=== PATIENT | female | born 1985 | race American Indian/Alaskan Native ===

== ENCOUNTER 2016-12-28 21:09 | Emergency (ER) | payer SELFPAY ==
[2016-12-28 22:00] LABS: Basophils % (Auto) 1.3 % (0.0-1.8); Eosinophils % (Auto) 3.5 % (0.0-4.3); Hematocrit 34.9 % (30.3-42.9); Hemoglobin 11.2 gm/dl (10.1-14.3); Mean Corpuscular HGB Conc 32 % (30-34); Mean Corpuscular Volume 77 fl (79-97); Platelet Count 305 K/mm3 (140-440); Red Blood Count 4.52 M/mm3 (3.65-5.03); White Blood Count 11.2 K/mm3 (4.5-11.0)
[2016-12-28 22:19] LABS: Mean Corpuscular Hemoglobin 25 pg (28-32)
[2016-12-29 00:19] LABS: Bilirubin,Urine NEG (Negative); Blood,Urine LG (Negative); Ketones,Urine NEG (Negative); Leukocyte Esterase,Urine NEG (Negative); Mucus,Urine FEW /HPF; Nitrite,Urine NEG (Negative); Urobilinogen,Urine < 2.0 mg/dL (<2.0)
--- NOTE | 2016-12-29 00:46 | Emergency Department Report ---
ED Abdominal Pain HPI - General Chief Complaint: Vaginal Bleeding Stated Complaint: VAGINAL BLEEDING Time Seen by Provider: 12/28/16 23:44 Source: patient Mode of arrival: Ambulatory Limitations: No Limitations - History of Present Illness Initial Comments: Pt is a 31 yr old female with no PMHx who presents with lower abdominal pain and vaginal bleeding x 1 day. Pt reports she passed some blood and tissue in the toilet today. She reports she was in October, but got her cycle and assumed she was not anymore, but when she passed blood and tissue in the toilet she came to the ED to be evaluated. Otherwise no fevers, chills, SOB, CP, NVD, trauma, syncope, or sick contacts MD Complaint: abdominal pain - Related Data Home Medications Medication Instructions Recorded Confirmed Last Taken No Known Home Medications [No 12/29/16 12/29/16 Unknown Reported Home Medications] Allergies Allergy/AdvReac Type Severity Reaction Status Date / Time codeine Allergy Itching Verified 12/28/16 21:32 Penicillins Allergy Swelling Verified 12/28/16 21:31 ED Review of Systems ROS: Stated complaint: VAGINAL BLEEDING Other details as noted in HPI Comment: All other systems reviewed and negative ED Past Medical Hx - Past Medical History Previous Medical History?: No - Surgical History Past Surgical History?: Yes Additional Surgical History: C SECTION - Social History Smoking Status: Current Every Day Smoker Substance Use Type: None - Medications Home Medications: Home Medications Medication Instructions Recorded Confirmed Last Taken Type No Known Home Medications [No 12/29/16 12/29/16 Unknown History Reported Home Medications] ED Physical Exam - General Limitations: No Limitations General appearance: alert, in no apparent distress - Head Head exam: Present: atraumatic, normocephalic - Eye Eye exam: Present: normal appearance - ENT ENT exam: Present: mucous membranes moist - Neck Neck exam: Present: normal inspection - Respiratory Respiratory exam: Present: normal lung sounds bilaterally. Absent: respiratory distress - Cardiovascular Cardiovascular Exam: Present: regular rate, normal rhythm. Absent: systolic murmur, diastolic murmur, rubs, gallop - GI/Abdominal GI/Abdominal exam: Present: soft, tenderness (suprapubic), normal bowel sounds. Absent: distended, guarding, rebound, rigid - Rectal Rectal exam: Present: deferred - External exam: Present: normal external exam, bleeding. Absent: lacerations Bi-manual exam: Present: other (vaginal bleeding, could not reach cervix, extremely posterior, limited by habitus). Absent: cervical motion tendernes, adnexal tenderness, adnexal mass - Extremities Exam Extremities exam: Present: normal inspection - Back Exam Back exam: Present: normal inspection - Neurological Exam Neurological exam: Present: alert, oriented X3 - Psychiatric Psychiatric exam: Present: normal affect, normal mood - Skin Skin exam: Present: warm, dry, intact, normal color. Absent: rash ED Course Vital Signs 12/28/16 12/28/16 12/28/16 21:32 23:42 23:51 Temperature 98.9 F Pulse Rate 73 78 78 Respiratory 18 14 19 Rate Blood Pressure 123/72 122/72 Blood Pressure 126/64 [Left] O2 Sat by Pulse 99 100 99 Oximetry 12/28/16 12/29/16 12/29/16 23:53 00:00 00:11 Temperature Pulse Rate 67 76 70 Respiratory 16 20 23 Rate Blood Pressure 122/72 114/54 114/54 Blood Pressure [Left] O2 Sat by Pulse 100 100 100 Oximetry 12/29/16 12/29/16 12/29/16 00:21 00:30 00:41 Temperature Pulse Rate 83 74 71 Respiratory 23 16 22 Rate Blood Pressure 112/51 113/58 113/58 Blood Pressure [Left] O2 Sat by Pulse 99 99 100 Oximetry 12/29/16 12/29/16 12/29/16 00:51 01:00 01:11 Temperature Pulse Rate 74 77 80 Respiratory 14 20 18 Rate Blood Pressure 106/60 96/57 96/57 Blood Pressure [Left] O2 Sat by Pulse 99 99 99 Oximetry 12/29/16 01:43 Temperature Pulse Rate 71 Respiratory 14 Rate Blood Pressure 109/57 Blood Pressure [Left] O2 Sat by Pulse 100 Oximetry ED Medical Decision Making - Lab Data Result diagrams: 12/28/16 21:44 - Radiology Data Radiology results: report reviewed Pelvic US: No acute pathology, no IUP, no free fluid. Normal uterus, complete AB - Medical Decision Making results discussed with patient Critical care attestation.: If time is entered above; I have spent that time in minutes in the direct care of this critically ill patient, excluding procedure time. ED Disposition Clinical Impression: Complete , Abdominal pain Disposition: DISCHARGED TO HOME OR SELFCARE Is pt being admited?: No Condition: Stable Instructions: Abdominal Pain (ED), Spontaneous Miscarriage (ED) Referrals: PRIMARY CARE, [Primary Care Provider] - 3-5 Days
--- NOTE | 2016-12-29 02:03 | Ultrasound Report ---
FINAL REPORT PROCEDURE: US OB TRANSVAGINAL TECHNIQUE: Real-time transvaginal sonography of the uterus, placenta, amniotic fluid, adnexa, and fetus was performed with image documentation. Measurements were obtained to determine age/size. M-mode Doppler was used to document heartbeat. CPT 69670 HISTORY: complete ab COMPARISON: No prior studies are available for comparison. FINDINGS: No intrauterine is identified. The uterus measures 10.8 x 4.8 x 5.3 centimeters. The endometrium is 9.5 millimeters. There is no endometrial fluid. There are incidental nabothian cysts in the cervix. Right ovary measures 3.5 x 2 x 2.2 centimeters. Left ovary measures 3.7 x 1.7 x 3.6 centimeters. There is no ovarian mass or torsion. There is no free fluid. IMPRESSION: Normal uterus and ovaries. No is identified. Correlation with beta HCG measurements may be helpful.
--- NOTE | 2016-12-29 02:03 | Ultrasound Report ---
FINAL REPORT PROCEDURE: US OB transabdominal TECHNIQUE: Real-time transabdominal sonography of the uterus, placenta, amniotic fluid, adnexa, and fetus was performed with image documentation. Measurements were obtained to determine age/size. M-mode Doppler was used to document heartbeat. HISTORY: complete ab COMPARISON: No prior studies are available for comparison. FINDINGS: No intrauterine is identified. The uterus measures 10.8 x 4.8 x 5.3 centimeters. The endometrium is 9.5 millimeters. There is no endometrial fluid. There are incidental nabothian cysts in the cervix. Right ovary measures 3.5 x 2 x 2.2 centimeters. Left ovary measures 3.7 x 1.7 x 3.6 centimeters. There is no ovarian mass or torsion. There is no free fluid. IMPRESSION: Normal uterus and ovaries. No is identified. Correlation with beta HCG measurements may be helpful.
[2016-12-29 02:36] VITALS: BP 96/57
== END 2016-12-29 02:40 | disposition home or self-care (01) ==
LOC: ED 21:09
DX: O03.9 Complete or unspecified spontaneous abortion without complication (principal); R10.30 Lower abdominal pain, unspecified; F17.200 Nicotine dependence, unspecified, uncomplicated; Z88.5 Allergy status to narcotic agent; Z88.0 Allergy status to penicillin
CPT/HCPCS: 36415; 76801; 76817; 81001; 84702; 85025; 86850; 86900; 86901

== ENCOUNTER 2017-02-20 23:07 | Emergency (ER) | payer SELFPAY ==
[2017-02-21 00:21] LABS: Basophils % (Auto) 0.5 % (0.0-1.8); Eosinophils % (Auto) 3.1 % (0.0-4.3); Hemoglobin 12.1 gm/dl (10.1-14.3); Mean Corpuscular HGB Conc 32 % (30-34); Mean Corpuscular Volume 79 fl (79-97); Platelet Count 317 K/mm3 (140-440); Red Blood Count 4.82 M/mm3 (3.65-5.03); Red Cell Distribution Width 16.6 % (13.2-15.2)
[2017-02-21 00:29] LABS: Mean Corpuscular Hemoglobin 25 pg (28-32)
[2017-02-21 00:35] LABS: Alanine Aminotransferase 23 units/L (7-56); Albumin 3.8 g/dL (3.9-5); Albumin/Globulin Ratio 1.3 %; Alkaline Phosphatase 77 units/L (35-129); Bilirubin,Total < 0.20 mg/dL (0.1-1.2); Blood Urea Nitrogen 14 mg/dL (7-17); Calcium 8.7 mg/dL (8.4-10.2); Carbon Dioxide 23 mmol/L (22-30); Chloride 102.3 mmol/L (98-107); Glucose 92 mg/dL (65-100); Potassium 4.2 mmol/L (3.6-5.0); Sodium 140 mmol/L (137-145); Total Protein 6.8 g/dL (6.3-8.2)
[2017-02-21 00:39] LABS: Anion Gap 19 mmol/L
[2017-02-21 00:48] LABS: Bacteria,Urine 2+ /HPF (Negative); Bilirubin,Urine NEG (Negative); Blood,Urine LG (Negative); Ketones,Urine NEG (Negative); Leukocyte Esterase,Urine SM (Negative); Mucus,Urine FEW /HPF; Nitrite,Urine NEG (Negative); Urobilinogen,Urine < 2.0 mg/dL (<2.0)
[2017-02-21 13:13] VITALS: BP 119/72
--- NOTE | 2017-02-21 13:21 | Emergency Department Report ---
ED Female HPI - General Chief complaint: Abdominal Pain Stated complaint: ABD PAIN/DIARRHEA Time Seen by Provider: 02/21/17 12:29 Source: patient Mode of arrival: Ambulatory Limitations: No Limitations - History of Present Illness Complaint: vaginal bleeding -: Gradual, days(s) Location: suprapubic Radiation: non-radiating Severity: mild Severity scale (0 -10): 1 Quality: cramping Consistency: intermittent Improves with: none Worsens with: none Are you Now?: No Associated Symptoms: vaginal bleeding. denies: vaginal discharge, abdominal pain, nausea/vomiting, fever/chills, headaches, loss of appetite, dysuria, hematuria, rash, shortness of breath, syncope, weakness - Related Data Home Medications Medication Instructions Recorded Confirmed Last Taken No Known Home Medications [No 12/29/16 12/29/16 Unknown Reported Home Medications] Allergies Allergy/AdvReac Type Severity Reaction Status Date / Time codeine Allergy Itching Verified 12/28/16 21:32 Penicillins Allergy Swelling Verified 12/28/16 21:31 ED Review of Systems ROS: Stated complaint: ABD PAIN/DIARRHEA Other details as noted in HPI Other: GENERAL: No weight change, fatigue, weakness, fever, chills, or night sweats SKIN: No changes in skin or hair, no itching, no rashes, no jaundice HEAD: No trauma, headache, or visual changes EYES: No blurriness, tearing, itching, acute visual loss, conjunctival discoloration, or scleral icterus EARS: No hearing loss, tinnitus, vertigo, or earache NOSE: No rhinorrhea, stuffiness, sneezing, itching, or epistaxis MOUTH: No bleeding gums, hoarseness, sore throat, or swelling CARDIAC: No new murmur, chest pain, palpitations, dyspnea on exertion, orthopnea , PND, or edema RESPIRATORY: No shortness of breath, wheeze, cough, sputum production, hemoptysis, pneumonia, asthma, bronchitis, or emphysema GI: No change in appetite, nausea, vomiting, dysphagia, change in bowel frequency, diarrhea, constipation, bleeding, hematemesis, melena, hematochezia, or abdominal pain URINARY: No frequency, urgency, polyuria, dysuria, hematuria, or incontinence MUSCULOSKELETAL: No muscle weakness, joint stiffness, decrease in range of motion, redness, swelling, tenderness NEUROLOGIC: No loss of sensation, numbness, tingling, tremors, weakness, paralysis, seizures HEMATOLOGIC: No anemia, easy bruising, bleeding, petechiae, or purpura ENDOCRINE: No hot or cold intolerance, sweating, polyuria, polydipsia or, polyphagia no thyroid problems PSYCHIATRIC: No change in mood, no anxiety, no depression GENITAL: Female: change in menstrual regularity ED Past Medical Hx - Past Medical History Previous Medical History?: No - Surgical History Past Surgical History?: Yes Additional Surgical History: C SECTION - Social History Smoking Status: Never Smoker Substance Use Type: Alcohol, Marijuana - Medications Home Medications: Home Medications Medication Instructions Recorded Confirmed Last Taken Type No Known Home Medications [No 12/29/16 12/29/16 Unknown History Reported Home Medications] ED Physical Exam - General Limitations: No Limitations - Other Other exam information: GENERAL: Patient in no acute distress HEAD: Normocephalic, atraumatic EYES: PERRLA, EOM intact, no scleral icterus, no conjunctival hemorrhage, visual isabel and acuity wnl, NOSE: No tenderness, discharge, sinus tenderness MOUTH: No erythema, bleeding, exudate HEART: Regular rate and rhythm, no murmur, S1-S2 are auscultated, pulses are symmetric LUNGS: No wheezing, rales, rhonchi, bilateral breath sounds ABDOMEN: Normal bowel sounds, no tenderness, no rebound, no guarding, no masses , no CVA tenderness MUSCULOSKELETAL: Normal joint range of motion, no redness, no swelling, no tenderness NEUROLOGIC: GCS 15, Alert and Oriented x3, Cranial nerves intact, normal sensation, normal strength, normal gait, no cerebellar deficit PSYCHIATRIC: No homicidal or suicidal ideation, no anxiety, no depression, no hallucinations SKIN: Skin is warm and dry, no wounds, no rashes ED Course Vital Signs 02/20/17 02/21/17 02/21/17 23:36 06:03 12:47 Temperature 98.2 F 98.3 F Pulse Rate 74 67 Respiratory 18 14 Rate Blood Pressure 133/85 129/84 O2 Sat by Pulse 99 100 97 Oximetry 02/21/17 02/21/17 02/21/17 13:00 13:08 13:13 Temperature 97.9 F Pulse Rate Respiratory 18 Rate Blood Pressure 119/72 O2 Sat by Pulse 98 100 Oximetry ED Medical Decision Making - Lab Data Result diagrams: 02/20/17 23:48 06/14/17 23:48 - Medical Decision Making Patient comfortable. Updated with results. Plan discharge with outpatient follow-up. Patient agrees with plan and will return if symptoms worsen. Critical care attestation.: If time is entered above; I have spent that time in minutes in the direct care of this critically ill patient, excluding procedure time. ED Disposition Clinical Impression: Dysfunctional uterine bleeding Abdominal pain Qualifiers: Abdominal location: unspecified location Qualified Code(s): R10.9 - Unspecified abdominal pain Disposition: TO HOME OR SELFCARE Is pt being admited?: No Condition: Stable Instructions: Dysfunctional Uterine Bleeding (ED), Abdominal Pain (ED) Referrals: PRIMARY CARE, [Primary Care Provider] - 2-3 Days [facility] [Provider Group] - 2-3 Days Forms: Work/School Release Form(ED) Time of Disposition: 13:19
== END 2017-02-21 13:43 | disposition home or self-care (01) ==
LOC: ED 23:07
DX: N93.8 Other specified abnormal uterine and vaginal bleeding (principal); F12.10 Cannabis abuse, uncomplicated; F10.10 Alcohol abuse, uncomplicated; Z88.6 Allergy status to analgesic agent; Z88.0 Allergy status to penicillin
CPT/HCPCS: 36415; 80053; 81001; 84703; 85025; 99283

== ENCOUNTER 2017-03-01 14:21 | Emergency (ER) | payer SELFPAY ==
--- NOTE | 2017-03-01 18:16 | Emergency Department Report ---
ED ENT HPI - General Chief complaint: Earache Stated complaint: LT EAR PAIN Time Seen by Provider: 03/01/17 17:28 Source: patient Mode of arrival: Ambulatory Limitations: No Limitations - History of Present Illness Initial comments: 31-year-old female presents complaining of 2 days of sensation of left ear fullness and slight decrease in hearing. Denies any purulent drainage from ear denies any headache denies any fever or chills. States she does have mild earache. States she has slight increase in lymph nodes on left side. MD complaint: ear pain Onset/Timin -: days(s) Location: L ear Severity: mild Severity scale (0 -10): 4 Quality: aching Consistency: intermittent - Related Data Previous Rx's Medication Instructions Recorded Last Taken Type Azithromycin [Zithromax Z-CLAUDETTE] 250 mg PO QDAY #6 tablet 03/01/17 Unknown Rx Carbamide Peroxide 6.5% [Ear Wax 1 drops OT QDAY #1 bottle 03/01/17 Unknown Rx Drops] Ibuprofen [Motrin] 800 mg PO Q8HR PRN #30 tablet 03/01/17 Unknown Rx Allergies Allergy/AdvReac Type Severity Reaction Status Date / Time codeine Allergy Itching Verified 03/01/17 15:23 Penicillins Allergy Swelling Verified 03/01/17 15:23 ED Dental HPI - General Chief complaint: Earache Stated complaint: LT EAR PAIN Time Seen by Provider: 03/01/17 17:28 Source: patient Mode of arrival: Ambulatory Limitations: No Limitations - Related Data Previous Rx's Medication Instructions Recorded Last Taken Type Azithromycin [Zithromax Z-CLAUDETTE] 250 mg PO QDAY #6 tablet 03/01/17 Unknown Rx Carbamide Peroxide 6.5% [Ear Wax 1 drops OT QDAY #1 bottle 03/01/17 Unknown Rx Drops] Ibuprofen [Motrin] 800 mg PO Q8HR PRN #30 tablet 03/01/17 Unknown Rx Allergies Allergy/AdvReac Type Severity Reaction Status Date / Time codeine Allergy Itching Verified 03/01/17 15:23 Penicillins Allergy Swelling Verified 03/01/17 15:23 ED Review of Systems ROS: Stated complaint: LT EAR PAIN Other details as noted in HPI Constitutional: denies: chills, fever Eyes: denies: eye pain, eye discharge, vision change ENT: ear pain (2 days of left-sided earache). denies: throat pain Respiratory: denies: cough, shortness of breath, wheezing Cardiovascular: denies: chest pain, palpitations Endocrine: no symptoms reported Gastrointestinal: denies: abdominal pain, nausea, diarrhea Genitourinary: denies: urgency, dysuria, discharge Musculoskeletal: denies: back pain, joint swelling, arthralgia Skin: denies: rash, lesions Neurological: denies: headache, weakness, paresthesias Psychiatric: denies: anxiety, depression Hematological/Lymphatic: denies: easy bleeding, easy bruising ED Past Medical Hx - Past Medical History Hx Psychiatric Treatment: Yes (ANXIETY / DEPRESSION) Additional medical history: "SLEEPING PROBLEMS". OBESITY - Surgical History Additional Surgical History: C SECTION - Social History Smoking Status: Current Every Day Smoker Substance Use Type: Alcohol, Marijuana - Medications Home Medications: Home Medications Medication Instructions Recorded Confirmed Last Taken Type Azithromycin [Zithromax Z-CLAUDETTE] 250 mg PO QDAY #6 tablet 03/01/17 Unknown Rx Carbamide Peroxide 6.5% [Ear Wax 1 drops OT QDAY #1 bottle 03/01/17 Unknown Rx Drops] Ibuprofen [Motrin] 800 mg PO Q8HR PRN #30 tablet 03/01/17 Unknown Rx ED Physical Exam - General Limitations: No Limitations General appearance: alert, in no apparent distress - Head Head exam: Present: atraumatic, normocephalic - Eye Eye exam: Present: normal appearance, PERRL, EOMI - ENT ENT exam: Present: mucous membranes moist - Expanded ENT Exam Expanded TM/Canal exam: Erythema: Left TM (mild erythema of left ear canal), Cerumen Impaction: Left TM (visible cerumen left ear canal) - Neck Neck exam: Present: normal inspection, full ROM - Respiratory Respiratory exam: Present: normal lung sounds bilaterally. Absent: respiratory distress - Cardiovascular Cardiovascular Exam: Present: regular rate, normal rhythm. Absent: systolic murmur, diastolic murmur, rubs, gallop - GI/Abdominal GI/Abdominal exam: Present: soft, normal bowel sounds - Extremities Exam Extremities exam: Present: normal inspection - Back Exam Back exam: Present: normal inspection - Neurological Exam Neurological exam: Present: alert, oriented X3 - Psychiatric Psychiatric exam: Present: normal affect, normal mood - Skin Skin exam: Present: warm, dry, intact, normal color. Absent: rash ED Course Vital Signs 03/01/17 15:28 Temperature 98.3 F Pulse Rate 85 Respiratory 17 Rate Blood Pressure 126/77 O2 Sat by Pulse 97 Oximetry - Foreign Body Removal Ear Location: ear canal (L) If Insect Suspected: no insect seen Foreign Body Removed: no Foreign Body Removal Technique: irrigation Patient Tolerated Procedure: well ED Medical Decision Making - Medical Decision Making A/P: Cerumen impaction left ear, otitis media 1-ear canal lavaged with saline and hydrogen peroxide mix, moderate amount of cerumen dislodged from ear canal. Tympanic membrane now visible. Slight injection and redness of tympanic membrane no visible effusion slightly injection of left ear canal. Will cover patient empirically with azithromycin as per uptodate reccomendations on alternative ABX regimen as pt is penicillin allergic 2- Debrox drops for cerumen impaction 3- I advised patient to make a follow-up appointment with ENT as soon as possible as she still has some thick wax overlying the left tympanic membrane. Corner of the tympanic membrane visible in the left canal. 4- patient's hearing is grossly intact Critical care attestation.: If time is entered above; I have spent that time in minutes in the direct care of this critically ill patient, excluding procedure time. ED Disposition Clinical Impression: Impacted cerumen of left ear Disposition: DC-01 TO HOME OR SELFCARE Is pt being admited?: No Does the pt Need Aspirin: No Condition: Stable Instructions: Cerumen Impaction (ED), Otitis Media (ED) Prescriptions: Azithromycin [Zithromax Z-CLAUDETTE] 250 mg PO QDAY #6 tablet Carbamide Peroxide 6.5% [Ear Wax Drops] 1 drops OT QDAY #1 bottle Ibuprofen [Motrin] 800 mg PO Q8HR PRN #30 tablet PRN Reason: Pain Referrals: KAELYN MALHOTRA MD [Staff Physician] - 3-5 Days ENT [facility] [Provider Group] - 3-[address] [facility] [Provider Group] - 3-5 Days [facility] [Outside] - 3-5 Days Forms: Accompanied Note, Work/School Release Form(ED) Time of Disposition: 18:29
[2017-03-01] MEDS ORDERED: MOTRIN PO ONE (18:35)
[2017-03-01 19:00] VITALS: BP 125/80
== END 2017-03-01 19:17 | disposition home or self-care (01) ==
LOC: ED 14:21
DX: H61.22 Impacted cerumen, left ear (principal); F41.9 Anxiety disorder, unspecified; F32.9 Major depressive disorder, single episode, unspecified; F17.210 Nicotine dependence, cigarettes, uncomplicated; F12.10 Cannabis abuse, uncomplicated; Z88.6 Allergy status to analgesic agent; Z88.0 Allergy status to penicillin
CPT/HCPCS: 99283

== ENCOUNTER 2017-03-07 02:03 | Emergency (ER) | payer SELFPAY ==
[2017-03-07 05:48] VITALS: BP 136/80
--- NOTE | 2017-03-07 07:05 | Emergency Department Report ---
ED ENT HPI - General Chief complaint: Earache Stated complaint: LEFT EARACHE Time Seen by Provider: 03/07/17 06:12 Source: patient Mode of arrival: Ambulatory Limitations: No Limitations - History of Present Illness Initial comments: Patient comes into the ER today with complaints of left ear pain for the past 1.5 weeks. Patient states that she was here approximately 1.5 weeks ago and apparently someone attempted to remove some wax from her ear and was unsuccessful. States that ever since then she has been having pain with decreased hearing. Patient also states that she has been having some sinus congestion and a mild cough. Patient denies any fever, body aches, hemoptysis. MD complaint: ear pain - Related Data Previous Rx's Medication Instructions Recorded Last Taken Type Ibuprofen [Motrin 800 MG tab] 800 mg PO Q8HR PRN #30 tablet 03/01/17 Unknown Rx Cephalexin [Keflex] 500 mg PO TID #30 capsule 03/07/17 Unknown Rx traMADol [Ultram] 50 mg PO Q4HR PRN #20 tablet 03/07/17 Unknown Rx Allergies Allergy/AdvReac Type Severity Reaction Status Date / Time codeine Allergy Itching Verified 03/01/17 15:23 Penicillins Allergy Swelling Verified 03/01/17 15:23 ED Dental HPI - General Chief complaint: Earache Stated complaint: LEFT EARACHE Time Seen by Provider: 03/07/17 06:12 Source: patient Mode of arrival: Ambulatory Limitations: No Limitations - Related Data Previous Rx's Medication Instructions Recorded Last Taken Type Ibuprofen [Motrin 800 MG tab] 800 mg PO Q8HR PRN #30 tablet 03/01/17 Unknown Rx Cephalexin [Keflex] 500 mg PO TID #30 capsule 03/07/17 Unknown Rx traMADol [Ultram] 50 mg PO Q4HR PRN #20 tablet 03/07/17 Unknown Rx Allergies Allergy/AdvReac Type Severity Reaction Status Date / Time codeine Allergy Itching Verified 03/01/17 15:23 Penicillins Allergy Swelling Verified 03/01/17 15:23 ED Review of Systems ROS: Stated complaint: LEFT EARACHE Other details as noted in HPI Constitutional: denies: chills, fever Eyes: denies: eye pain, eye discharge, vision change ENT: ear pain, hearing loss, congestion. denies: throat pain, dental pain, epistaxis Respiratory: cough. denies: shortness of breath, wheezing Cardiovascular: denies: chest pain, palpitations Endocrine: no symptoms reported Gastrointestinal: denies: abdominal pain, nausea, diarrhea Genitourinary: denies: urgency, dysuria, discharge Musculoskeletal: denies: back pain, joint swelling, arthralgia Skin: denies: rash, lesions Neurological: denies: headache, weakness, paresthesias Psychiatric: denies: anxiety, depression Hematological/Lymphatic: denies: easy bleeding, easy bruising ED Past Medical Hx - Past Medical History Previous Medical History?: Yes Hx Psychiatric Treatment: Yes (ANXIETY / DEPRESSION) Additional medical history: "SLEEPING PROBLEMS". OBESITY - Surgical History Past Surgical History?: Yes Additional Surgical History: C SECTION - Social History Smoking Status: Current Every Day Smoker Substance Use Type: None - Medications Home Medications: Home Medications Medication Instructions Recorded Confirmed Last Taken Type Ibuprofen [Motrin 800 MG tab] 800 mg PO Q8HR PRN #30 tablet 03/01/17 Unknown Rx Cephalexin [Keflex] 500 mg PO TID #30 capsule 03/07/17 Unknown Rx traMADol [Ultram] 50 mg PO Q4HR PRN #20 tablet 03/07/17 Unknown Rx ED Physical Exam - General Limitations: No Limitations General appearance: alert, in no apparent distress - Head Head exam: Present: atraumatic, normocephalic - Eye Eye exam: Present: normal appearance, PERRL, EOMI - ENT ENT exam: Present: mucous membranes moist, other (nasal mucosa redness with turbinate swelling bilaterally). Absent: TM's normal bilaterally (left TM redness with loss of landmarks.), normal external ear exam (White appearing foreign body noted in the left) - Neck Neck exam: Present: normal inspection, full ROM. Absent: tenderness, lymphadenopathy - Respiratory Respiratory exam: Present: normal lung sounds bilaterally. Absent: respiratory distress, decreased breath sounds - Cardiovascular Cardiovascular Exam: Present: regular rate, normal rhythm. Absent: systolic murmur, diastolic murmur, rubs, gallop - GI/Abdominal GI/Abdominal exam: Present: soft, normal bowel sounds - Extremities Exam Extremities exam: Present: normal inspection - Back Exam Back exam: Present: normal inspection - Neurological Exam Neurological exam: Present: alert, oriented X3 - Psychiatric Psychiatric exam: Present: normal affect, normal mood - Skin Skin exam: Present: warm, dry, intact, normal color. Absent: rash ED Course Vital Signs 03/07/17 03/07/17 02:11 05:47 Temperature 99.0 F 97.6 F Pulse Rate 79 73 Respiratory 20 18 Rate Blood Pressure 121/73 136/80 O2 Sat by Pulse 99 97 Oximetry - Foreign Body Removal Ear Location: ear canal (L) Foreign Body Suspected: other (white tissue paper) Foreign Body Removed: yes Foreign Body Removal Technique: forceps Tympanic Membrane Intact: Yes Patient Tolerated Procedure: well, no complications Complications: none ED Medical Decision Making - Medical Decision Making She is nontoxic and hemodynamically stable. Foreign body removed from left EAC without complications. I informed patient that she does have a inner ear infection as well. Patient will be started on antibiotics accordingly and I will prescribe her some medication for pain for symptomatic relief. Patient is in agreement with treatment plan patient is stable for discharge. Critical care attestation.: If time is entered above; I have spent that time in minutes in the direct care of this critically ill patient, excluding procedure time. ED Disposition Clinical Impression: Foreign body in left ear, Acute left otitis media, Sinusitis Disposition: - TO HOME OR SELFCARE Is pt being admited?: No Does the pt Need Aspirin: No Condition: Good Instructions: Otitis Media (ED), Ear Foreign Body (ED), Sinusitis (ED) Prescriptions: Cephalexin [Keflex] 500 mg PO TID #30 capsule traMADol [Ultram] 50 mg PO Q4HR PRN #20 tablet PRN Reason: Pain Referrals: PRIMARY CARE, [Primary Care Provider] - 3-5 Days [facility] [Provider Group] - 3-5 Days Forms: Work/School Release Form(ED) Time of Disposition: 07:06
== END 2017-03-07 07:11 | disposition home or self-care (01) ==
LOC: ED 02:03
DX: T16.2XXA Foreign body in left ear, initial encounter (principal); H66.92 Otitis media, unspecified, left ear; J32.9 Chronic sinusitis, unspecified; F41.9 Anxiety disorder, unspecified; F32.9 Major depressive disorder, single episode, unspecified; F17.200 Nicotine dependence, unspecified, uncomplicated; E66.9 Obesity, unspecified; Z88.5 Allergy status to narcotic agent; Z88.0 Allergy status to penicillin; X58.XXXA Exposure to other specified factors, initial encounter; Y93.89 Activity, other specified; Y99.9 Unspecified external cause status; Y92.89 Other specified places as the place of occurrence of the external cause